=== PATIENT | female | born 1990 | race American Indian/Alaskan Native ===

== ENCOUNTER 2019-08-05 12:15 | Emergency (ER) | payer SELFPAY ==
[2019-08-05 13:43] VITALS: BP 126/80
--- NOTE | 2019-08-05 13:44 | Event Note ---
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 Further treatment and workup at subsequent clinical providers discretion. Patient/guardian urged not to elope from the ED as their condition may be serious if not clinically assessed and managed. Initial orders include: ua, urine preg
[2019-08-05 14:02] LABS: Bilirubin,Urine NEG (Negative); Blood,Urine NEG (Negative); Color,Urine Straw (Yellow); Protein,Urine <15 mg/dL mg/dL (Negative); Urobilinogen,Urine < 2.0 mg/dL (<2.0); WBC,Urine < 1.0 /HPF (0.0-6.0)
[2019-08-05 14:10] LABS: HCG Qualitative,Urine Negative (Negative)
--- NOTE | 2019-08-05 15:04 | Emergency Department Report ---
Chief Complaint: Urogenital-Female Stated Complaint: VAG DISCHARGE/ODER Time Seen by Provider: 08/05/19 13:35 - HPI History of Present Illness: This a 28-year-old female who presents the ED complaining of malodorous vaginal discharge for the past week and a half. Patient states that she has had this in the past. Patient denies dysuria, fever, chills, nausea vomiting - ROS Review of Systems: As noted in HPI - Exam Vital Signs: Vital Signs 08/05/19 12:30 Temperature 98.2 F Pulse Rate 95 H Respiratory 16 Rate Blood Pressure 126/80 O2 Sat by Pulse 100 Oximetry Physical Exam: GENERAL: Alert and oriented x3, no apparent distress, Normal Gait, atraumatic. HEAD: Head is normocephalic and a-traumatic. SKIN: Warm and dry, No lesions, No ulceration or induration present. MSE screening note: Focused history and physical exam performed. Due to findings the following was ordered: ED Medical Decision Making - Medical Decision Making 28-year-old female presents with vaginitis ED course: test negative Discussed with patient findings and treatment Discussed the follow-up with the health department for further STD testing. Patient's alert and oriented times 3. Vital signs are normal patient is in no acute discharge. Patient will be discharged home with instructions. ED Disposition for MSE Clinical Impression: Vaginitis Disposition: MED SCREENING EXAM-LEFT Is pt being admited?: No Does the pt Need Aspirin: No Condition: Stable Instructions: Vaginitis (ED) Additional Instructions: Make sure to follow up with the primary care physician as discussed. Take all your medications as you've been prescribed. If you have any worsening symptoms or develop new symptoms please return to ED immediately. Prescriptions: Fluconazole [Diflucan TAB] 200 mg PO QDAY #1 tablet metroNIDAZOLE [Flagyl] 500 mg PO Q12HR #14 tab Referrals: PRIMARY CAREMD [Primary Care Provider] - 3-5 Days [facility] [Outside] - 3-5 Days [facility] [Outside] - 3-5 Days TAHIR QUACH MD [Staff Physician] - 3-5 Days Forms: Accompanied Note, Work/School Release Form(ED) Time of Disposition: 15:06
== END 2019-08-05 15:21 | disposition left against medical advice (07) ==
LOC: ED 12:15
DX: N76.0 Acute vaginitis (principal)
CPT/HCPCS: 81001; 81025; 99283